=== PATIENT | female | born 1965 | race Caucasian/White ===

== ENCOUNTER 2016-08-04 13:23 | Emergency (ER) | payer OTHER ==
[~2016-08-04] VITALS: Ht 149.9 cm; Wt 46.0 kg
[2016-08-04 13:26] VITALS: BP 152/78; PULSE 89; RESP 18; TEMP 98.2; O2SAT 99
[2016-08-04] MEDS ORDERED: MONT10TA2 PO (13:57)
[2016-08-04] MEDS ORDERED: VALS160T4 PO (13:57)
[2016-08-04] MEDS ORDERED: CLAR10CA3 PO (13:57)
[2016-08-04] MEDS ORDERED: VESI10TA PO (13:57)
[2016-08-04] MEDS ORDERED: AMIT25TA9 PO (13:57)
--- NOTE | 2016-08-04 14:10 | PD ---
HPI Chief Complaint: Pain: Acute or Chronic Time Seen by Provider: 14:04 Travel History International Travel<30 days: No Contact w/Intl Traveler<30days: No Traveled to known affect area: No History of Present Illness HPI Patient is a 51-year-old female presenting to emergency department for evaluation of pelvic and groin pain. She fell on May 27, 2016 on a tile floor in her home. Pain persisted so she went to an emergency department in [place] 2 weeks ago. There they did a CAT scan of her lumbar spine and told her there was nothing fractured, prescribed tramadol and meloxicam and told her to follow-up with her primary doctor. Patient states the pain has persisted, the tramadol and meloxicam haven't helped, and the tramadol makes her itchy. She states the pain is worse with sitting, somewhat relieved with standing. She denies any numbness in her extremities but states her feet get very cold which is not new for her. Patient's past medical history includes hypertension. PFS Past Medical History Hypertension: Yes ?: Not LMP: PARTIAL HYST. Past Surgical History Hysterectomy: Yes (partial) Social History Alcohol Use: Yes (occasionally) Tobacco Use: No Substance Use: Yes (marijuana) Allergies-Medications (Allergen,Severity, Reaction): Coded Allergies: Codeine (Verified Allergy, Severe, 08/04/16) ITCHING Tramadol (Verified Allergy, Severe, 08/04/16) ITCHING Reported Meds & Prescriptions Reported Meds & Active Scripts Active Reported Vesicare (Solifenacin) 10 Mg Tab 10 Mg PO DAILY Amitriptyline (Amitriptyline HCl) 25 Mg Tab 25 Mg PO HS Singulair (Montelukast Sodium) 10 Mg Tab 10 Mg PO HS Claritin (Loratadine) 10 Mg Cap 10 Mg PO DAILY Valsartan-Hydrochlorothiazide 160-12.5 Mg Tab 1 Tab PO DAILY Review of Systems Except as stated in HPI: all other systems reviewed are Neg Musculoskeletal: Positive: Arthralgias, Pain Neurologic: No: Weakness, Paresthesia, Sensory Disturbance Physical Exam Narrative GENERAL: Well-nourished, well-developed patient. SKIN: Warm and dry. HEAD: Normocephalic. EYES: No scleral icterus. No injection or drainage. NECK: Supple, trachea midline. No JVD or lymphadenopathy. CARDIOVASCULAR: Regular rate and rhythm without murmurs, gallops, or rubs. RESPIRATORY: Breath sounds equal bilaterally. No accessory muscle use. GASTROINTESTINAL: Abdomen soft, non-tender, nondistended. MUSCULOSKELETAL: No cyanosis, or edema. 5/5 muscle strength in bilateral lower extremities. No spinal tenderness in cervical, thoracic, lumbar spine. No tenderness to palpation in paraspinal musculature in the lumbar region. BACK: Nontender without obvious deformity. No CVA tenderness. Data Data Last Documented VS Vital Signs Date Time Temp Pulse Resp B/P Pulse Ox O2 Delivery O2 Flow Rate FiO2 08/04/16 13:26 98.2 89 18 152/78 99 Orders Pelvis, Ap Only (Routine) (08/04/16 ) MDM Medical Decision Making Medical Screen Exam Complete: Yes Emergency Medical Condition: Yes Interpretation(s) Last Impressions Pelvis X-Ray 08/04/16 0000 Signed Impressions: Service Date/Time: Thursday, August 04, 2016 14:21 - CONCLUSION: No acute abnormality is identified. Darrel Clifford MD Vital Signs Date Time Temp Pulse Resp B/P Pulse Ox O2 Delivery O2 Flow Rate FiO2 08/04/16 13:26 98.2 89 18 152/78 99 Differential Diagnosis Pelvic fracture versus sciatica versus discogenic pain versus other Narrative Course Patient is a 51-year-old female presenting to emergency for evaluation of pain that starts in her buttocks and radiates to her groin, the pain is worse with sitting. The initial injury was in May, patient was evaluated in the emergency department 2 weeks ago. However the pain persists. Patient has already had negative CT imaging of her lumbar spine. Will perform an x-ray of her pelvis to rule out pelvic fracture. X-ray of the pelvis shows no acute abnormality. Discussed with patient she needs to follow up with her primary doctor, possible referral to physical therapy. She was encouraged to return to emergency department for any new or worsening symptoms. She verbalized understanding of these instructions. Patient is stable for discharge. Diagnosis Primary Impression: Pain aggravated by sitting Additional Impression: Sacral back pain Referrals: Primary Care Physician Patient Instructions: Back Pain (ED), General Instructions Additional Instructions: Follow-up with her primary doctor. Trial alternative therapies such as heat, massage, yoga Return to emergency department for any new or worsening symptoms Med/Other Pt SpecificInfo: Prescription(s) given Scripts Meloxicam 15 Mg Tab15 Mg PO DAILY #30 TAB Ref 0 Prov:Michelle Nascimento 08/04/16 Disposition: 01 DISCHARGE HOME Condition: Stable Michelle Nascimento Aug 04, 2016 14:10
--- NOTE | 2016-08-04 14:51 | RADRPT ---
EXAM DATE/TIME: 08/04/2016 14:21 [facility] COMPARISON: No previous studies available for comparison. INDICATIONS : Pelvic pain after fall. MEDICAL HISTORY : None. SURGICAL HISTORY : None. ENCOUNTER: Initial ACUITY: 2 months PAIN SCORE: 8/10 LOCATION: Bilateral pelvis. FINDINGS: Single AP view of the pelvis demonstrates no fracture or dislocation. Mineralization is within normal limits. There is no significant arthropathy. No soft tissue abnormality or radiopaque foreign body i s identified. CONCLUSION: No acute abnormality is identified. Darrel Clifford MD on August 04, 2016 at 14:49 Board Certified Radiologist. This report was verified electronically.
[2016-08-04] MEDS ORDERED: MELO-1 PO (15:17)
== END 2016-08-04 15:50 | disposition home or self-care (01) ==
LOC: NETRI 13:23
DX: M53.3 Sacrococcygeal disorders, not elsewhere classified (principal); I10 Essential (primary) hypertension; F12.90 Cannabis use, unspecified, uncomplicated
CPT/HCPCS: 72170; 99284